=== PATIENT | male | born 2000 | race Caucasian/White ===

== ENCOUNTER → 2021-09-06 | Outpatient (CLI) | payer OTHER | LOC: KOH-I 09:30 | DX: R05.8 Other specified cough (principal) | CPT/HCPCS: 71046 ==

== ENCOUNTER → 2021-11-06 | Outpatient (CLI) | payer OTHER | LOC: HEART 5 15:06 | DX: J45.991 Cough variant asthma (principal) | CPT/HCPCS: 94060; 95012 ==